=== PATIENT | male | born 1935 | race Caucasian/White ===

== ENCOUNTER 2020-11-11 19:59 | Inpatient (IN) | payer OTHER ==
[~2020-11-11] VITALS: Ht 165.1 cm; Wt 63.1 kg
[2020-11-11] MEDS ORDERED: SODIUM CHLORIDE 0.9% 500 ML IV ONE (20:45)
[2020-11-11] MEDS ORDERED: ONDANSETRON HCL 4 MG/2 ML VIAL IV ONE (20:45)
[2020-11-11] MEDS ORDERED: MORPHINE SULFATE 4 MG/ML SYR/VIAL IV ONE (20:45)
[2020-11-11 22:08] LABS: Basophils # (auto) 0 10 ^3/uL (0-0.2); Basophils % (auto) 0.2 % (0.0-2.0); Eosinophils # (auto) 0.1 10 ^3/uL (0-0.8); Eosinophils % (auto) 1.1 % (0.0-7.0); Hematocrit 41.8 % (41.0-53.0); Hemoglobin 14.7 g/dL (13.5-17.5); Lymphocytes # (auto) 0.7 10 ^3/uL (0.4-5.4); Lymphocytes % (auto) 8.5 % (10.0-50.0); Mean Corpuscular Hemoglobin 32.4 pg (28.0-32.0); Mean Corpuscular Hgb Conc. 35.1 g/dL (32.0-36.0); Mean Corpuscular Volume 92.4 fL (80.0-100.0); Monocytes # (auto) 0.9 10 ^3/uL (0-1.3); Monocytes % (auto) 10.9 % (0.0-12.0); Neutrophils # (auto) 6.9 10 ^3/uL (1.6-8.6); Neutrophils % (auto) 79.3 % (37.0-80.0); Red Blood Cells 4.53 10^6/uL (4.5-5.90); White Blood Cell 8.7 10^3/uL (4.4-10.8)
[2020-11-11 22:30] LABS: BUN/Creatinine Ratio 24.4; Calcium 8.7 mg/dL (8.5-10.1); Potassium 3.9 mmol/L (3.5-5.1)
[2020-11-11 22:45] LABS: Partial Thromboplastin Time 44.4 sec (23.0-31.2)
[2020-11-11 22:49] LABS: INR 4.7 (0.9-1.15)
[2020-11-12] MEDS ORDERED: MORPHINE SULF INJ 2 MG/ML SYRINGE 1ML IV PRN (01:30)
[2020-11-12] MEDS ORDERED: DOCUSATE SOD 100 MG CAP PO PRN (01:30)
[2020-11-12] MEDS ORDERED: ONDANSETRON HCL 4 MG/2 ML VIAL IV PRN (01:30)
[2020-11-12] MEDS ORDERED: NITROGLYCERIN 0.4 MG SL TAB SL PRN (01:30)
[2020-11-12] MEDS ORDERED: ACETAMINOPHEN 325 MG TAB PO PRN (01:30)
[2020-11-12] MEDS ORDERED: HYDROcodone-ACET 5/325MG TAB PO PRN (01:30)
[2020-11-12] MEDS: SODIUM CHLORIDE 0.9% 1,000 ML IV SCH ×2 (03:08→18:10)
[2020-11-12 06:45] VITALS: BP 124/68
[2020-11-12 08:59] LABS: Basophils # (auto) 0 10 ^3/uL (0-0.2); Basophils % (auto) 0.7 % (0.0-2.0); Eosinophils # (auto) 0.2 10 ^3/uL (0-0.8); Eosinophils % (auto) 2.9 % (0.0-7.0); Hematocrit 40.4 % (41.0-53.0); Lymphocytes # (auto) 0.7 10 ^3/uL (0.4-5.4); Lymphocytes % (auto) 9.3 % (10.0-50.0); Mean Corpuscular Hemoglobin 32.1 pg (28.0-32.0); Mean Corpuscular Hgb Conc. 34.7 g/dL (32.0-36.0); Mean Corpuscular Volume 92.6 fL (80.0-100.0); Monocytes # (auto) 0.9 10 ^3/uL (0-1.3); Monocytes % (auto) 12.1 % (0.0-12.0); Neutrophils # (auto) 5.4 10 ^3/uL (1.6-8.6); Nucleated Red Blood Cells % 0.1 %; Red Blood Cells 4.36 10^6/uL (4.5-5.90); Red Cell Distribution Width 15.2 % (11.8-14.3); White Blood Cell 7.2 10^3/uL (4.4-10.8)
[2020-11-12 09:00] VITALS: BP 124/68
[2020-11-12] MEDS ORDERED: IRBE150T49 PO (09:14)
[2020-11-12] MEDS ORDERED: FURO40TA4 PO (09:14)
[2020-11-12] MEDS ORDERED: PROP10TA57 PO (09:14)
[2020-11-12] MEDS ORDERED: DILT90CA PO (09:14)
[2020-11-12] MEDS ORDERED: WARF2TAB49 PO (09:14)
[2020-11-12] MEDS ORDERED: POTA10TA32 PO (09:14)
[2020-11-12] MEDS ORDERED: ATOR40TA52 PO (09:14)
[2020-11-12 09:19] LABS: Albumin 2.8 g/dL (3.4-5.0); BUN/Creatinine Ratio 25.4; Calcium 7.9 mg/dL (8.5-10.1); Partial Thromboplastin Time 48.7 sec (23.0-31.2); Potassium 3.8 mmol/L (3.5-5.1)
[2020-11-12 09:22] LABS: Bilirubin, Total 1.5 mg/dL (0.2-1.0); INR 5.82 (0.9-1.15); Total Protein 5.9 g/dL (6.4-8.2)
[2020-11-12] MEDS ORDERED: ZINC SULFATE 220mg CAP or TAB PO SCH (10:00)
[2020-11-12] MEDS ORDERED: ENOXAPARIN SOD 40 MG/0.4 ML SYRINGE SC SCH (10:00)
[2020-11-12] MEDS: ASCORBIC ACID 500 MG TAB PO SCH ×2 (10:56→22:00)
[2020-11-12] MEDS: MULTIPLE VITAMIN TAB PO SCH (10:56)
[2020-11-12] MEDS: FAMOTIDINE (10MG/ML) 2ML VL IV SCH ×2 (10:56→22:00)
[2020-11-12 13:00] VITALS: BP 122/70
[2020-11-12 17:00] VITALS: BP 132/68
[2020-11-12 22:00] VITALS: BP 118/70
[2020-11-12] MEDS ORDERED: PHYTONADIONE(VitK) ORAL Susp 10mg/10ml(1mg/ml) PO ONE (23:45)
[2020-11-13 05:01] VITALS: BP 151/72
[2020-11-13 05:40] LABS: Basophils # (auto) 0 10 ^3/uL (0-0.2); Basophils % (auto) 0.5 % (0.0-2.0); Eosinophils # (auto) 0.1 10 ^3/uL (0-0.8); Hematocrit 42.2 % (41.0-53.0); Hemoglobin 14.5 g/dL (13.5-17.5); Lymphocytes # (auto) 0.6 10 ^3/uL (0.4-5.4); Lymphocytes % (auto) 7.1 % (10.0-50.0); Mean Corpuscular Hemoglobin 31.8 pg (28.0-32.0); Mean Corpuscular Hgb Conc. 34.3 g/dL (32.0-36.0); Mean Corpuscular Volume 92.7 fL (80.0-100.0); Monocytes # (auto) 0.9 10 ^3/uL (0-1.3); Monocytes % (auto) 11.2 % (0.0-12.0); Neutrophils # (auto) 6.6 10 ^3/uL (1.6-8.6); Neutrophils % (auto) 80.2 % (37.0-80.0); Red Blood Cells 4.56 10^6/uL (4.5-5.90); Red Cell Distribution Width 14.7 % (11.8-14.3); White Blood Cell 8.2 10^3/uL (4.4-10.8)
[2020-11-13 06:04] LABS: INR 5.56 (0.9-1.15)
[2020-11-13 06:08] LABS: Calcium 7.9 mg/dL (8.5-10.1); Potassium 3.9 mmol/L (3.5-5.1)
[2020-11-13 06:14] LABS: Albumin 2.6 g/dL (3.4-5.0); BUN/Creatinine Ratio 26.6; Bilirubin, Total 1.9 mg/dL (0.2-1.0); Total Protein 6.1 g/dL (6.4-8.2)
[2020-11-13 09:00] VITALS: BP 137/66
[2020-11-13] MEDS ORDERED: MORPHINE SULF INJ 2 MG/ML SYRINGE 1ML IV PRN (10:00)
[2020-11-13] MEDS ORDERED: PHYTONADIONE(VitK) ORAL Susp 10mg/10ml(1mg/ml) PO ONE (10:00)
[2020-11-13] MEDS: MULTIPLE VITAMIN TAB PO SCH (11:56)
[2020-11-13] MEDS: FAMOTIDINE (10MG/ML) 2ML VL IV SCH ×2 (11:56→22:46)
[2020-11-13 13:00] VITALS: BP 135/74
[2020-11-13 17:00] VITALS: BP 136/88
[2020-11-13 22:00] VITALS: BP 121/71
[2020-11-14 04:00] VITALS: BP 127/85
[2020-11-14 05:14] LABS: Basophils # (auto) 0 10 ^3/uL (0-0.2); Basophils % (auto) 0.7 % (0.0-2.0); Eosinophils # (auto) 0.2 10 ^3/uL (0-0.8); Eosinophils % (auto) 2.5 % (0.0-7.0); Hemoglobin 14.9 g/dL (13.5-17.5); Lymphocytes # (auto) 0.6 10 ^3/uL (0.4-5.4); Lymphocytes % (auto) 8.7 % (10.0-50.0); Mean Corpuscular Hemoglobin 32.2 pg (28.0-32.0); Mean Corpuscular Hgb Conc. 34.7 g/dL (32.0-36.0); Mean Corpuscular Volume 92.7 fL (80.0-100.0); Monocytes # (auto) 0.8 10 ^3/uL (0-1.3); Monocytes % (auto) 11.4 % (0.0-12.0); Neutrophils # (auto) 5.3 10 ^3/uL (1.6-8.6); Neutrophils % (auto) 76.7 % (37.0-80.0); Nucleated Red Blood Cells % 0.1 %; Red Blood Cells 4.64 10^6/uL (4.5-5.90); Red Cell Distribution Width 14.7 % (11.8-14.3); White Blood Cell 6.9 10^3/uL (4.4-10.8)
[2020-11-14 05:32] LABS: INR 1.5 (0.9-1.15); Partial Thromboplastin Time 34.1 sec (23.0-31.2)
[2020-11-14 06:00] LABS: Calcium 8.1 mg/dL (8.5-10.1); Potassium 3.8 mmol/L (3.5-5.1)
[2020-11-14 06:02] LABS: BUN/Creatinine Ratio 22.2
[2020-11-14 08:00] VITALS: BP 143/78
[2020-11-14] MEDS: MULTIPLE VITAMIN TAB PO SCH (10:32)
[2020-11-14] MEDS: FAMOTIDINE (10MG/ML) 2ML VL IV SCH ×2 (10:32→21:33)
[2020-11-14 12:00] VITALS: BP 126/73
[2020-11-14 17:59] VITALS: BP 134/90
[2020-11-14 22:00] VITALS: BP 131/60
[2020-11-15 05:04] VITALS: BP 134/77
[2020-11-15] MEDS: FAMOTIDINE (10MG/ML) 2ML VL IV SCH ×2 (10:32→21:02)
[2020-11-15] MEDS: MULTIPLE VITAMIN TAB PO SCH (10:32)
[2020-11-15 13:56] VITALS: BP 117/72
[2020-11-15] MEDS: ENOXAPARIN SOD 60 MG/0.6 ML SYRINGE SC SCH ×2 (13:56→21:02)
[2020-11-15 17:00] VITALS: BP 135/76
[2020-11-15] MEDS ORDERED: WARFARIN SODIUM 1 MG TAB PO SCH (17:00)
[2020-11-15 21:13] VITALS: BP 136/98
[2020-11-16 03:10] VITALS: BP 148/75
[2020-11-16 06:03] LABS: Basophils # (auto) 0.1 10 ^3/uL (0-0.2); Basophils % (auto) 0.9 % (0.0-2.0); Eosinophils # (auto) 0.2 10 ^3/uL (0-0.8); Eosinophils % (auto) 2.6 % (0.0-7.0); Hematocrit 44.4 % (41.0-53.0); Hemoglobin 15.3 g/dL (13.5-17.5); Lymphocytes # (auto) 0.9 10 ^3/uL (0.4-5.4); Lymphocytes % (auto) 12.6 % (10.0-50.0); Mean Corpuscular Hemoglobin 31.8 pg (28.0-32.0); Mean Corpuscular Hgb Conc. 34.4 g/dL (32.0-36.0); Mean Corpuscular Volume 92.4 fL (80.0-100.0); Monocytes # (auto) 0.9 10 ^3/uL (0-1.3); Monocytes % (auto) 12.3 % (0.0-12.0); Neutrophils # (auto) 5.3 10 ^3/uL (1.6-8.6); Neutrophils % (auto) 71.6 % (37.0-80.0); Nucleated Red Blood Cells % 0.1 %; Red Blood Cells 4.81 10^6/uL (4.5-5.90); Red Cell Distribution Width 14.6 % (11.8-14.3); White Blood Cell 7.4 10^3/uL (4.4-10.8)
[2020-11-16 06:26] LABS: INR 1.24 (0.9-1.15)
[2020-11-16 09:00] VITALS: BP 132/76
[2020-11-16] MEDS: MULTIPLE VITAMIN TAB PO SCH (11:31)
[2020-11-16] MEDS: FAMOTIDINE (10MG/ML) 2ML VL IV SCH (11:31)
[2020-11-16] MEDS: ENOXAPARIN SOD 60 MG/0.6 ML SYRINGE SC SCH (11:31)
== END 2020-11-16 14:06 | DRG 552 ==
LOC: ER 19:59 → EDBD 19:59 → TELE-WESTW 11-12 01:26
PROVIDERS: ADMIT Nurse Practitioner Family; ATTEND Internal Medicine
DX: S32.030A Wedge compression fracture of third lumbar vertebra, initial encounter for closed fracture (principal); F05 Delirium due to known physiological condition; W06.XXXA Fall from bed, initial encounter; I48.0 Paroxysmal atrial fibrillation; E78.5 Hyperlipidemia, unspecified; Z20.822 Contact with and (suspected) exposure to COVID-19; G89.29 Other chronic pain; I10 Essential (primary) hypertension; I25.10 Atherosclerotic heart disease of native coronary artery without angina pectoris; R79.1 Abnormal coagulation profile; Z79.01 Long term (current) use of anticoagulants; Z95.2 Presence of prosthetic heart valve; Y93.89 Activity, other specified; Y92.89 Other specified places as the place of occurrence of the external cause; Y99.8 Other external cause status
CPT/HCPCS: 36415; 70450; 71045; 72131; 72192; 80048; 80053; 85025; 85610; 85730; 87426; 93005; 93306; 96361; 96374; 96375; 97116; 97163; 97530; G0378; J2405; J3490

== ENCOUNTER 2021-01-18 18:41 | Inpatient (IN) | payer MEDICARE, OTHER ==
[~2021-01-18] VITALS: Ht 175.3 cm; Wt 65.5 kg
[~2021-01-18 18:41] MED LIST: ATOR40TA52 PO; DILT90CA PO; FURO40TA4 PO; IRBE150T49 PO; POTA10TA32 PO; PROP10TA57 PO; WARF2TAB49 PO
[2021-01-18 19:32] LABS: Basophils # (auto) 0 10 ^3/uL (0-0.2); Basophils % (auto) 0.4 % (0.0-2.0); Eosinophils # (auto) 0 10 ^3/uL (0-0.8); Eosinophils % (auto) 0.5 % (0.0-7.0); Hemoglobin 14.7 g/dL (13.5-17.5); Lymphocytes # (auto) 0.4 10 ^3/uL (0.4-5.4); Lymphocytes % (auto) 4.3 % (10.0-50.0); Mean Corpuscular Hemoglobin 32.2 pg (28.0-32.0); Mean Corpuscular Hgb Conc. 33.5 g/dL (32.0-36.0); Mean Corpuscular Volume 96.1 fL (80.0-100.0); Monocytes # (auto) 0.8 10 ^3/uL (0-1.3); Monocytes % (auto) 8.4 % (0.0-12.0); Neutrophils # (auto) 8.2 10 ^3/uL (1.6-8.6); Neutrophils % (auto) 86.4 % (37.0-80.0); Red Blood Cells 4.58 10^6/uL (4.5-5.90); Red Cell Distribution Width 15.6 % (11.8-14.3); White Blood Cell 9.5 10^3/uL (4.4-10.8)
[2021-01-18 19:53] LABS: Albumin 3.1 g/dL (3.4-5.0); Calcium 8.9 mg/dL (8.5-10.1); Magnesium 2.3 mg/dL (1.6-2.6); Potassium 5.1 mmol/L (3.5-5.1)
[2021-01-18 20:00] LABS: BUN/Creatinine Ratio 16.3; Total Protein 6.4 g/dL (6.4-8.2)
[2021-01-18] MEDS ORDERED: HALOPERIDOL LACTATE 5 MG/ML INJ VIAL IM ONE (22:00)
[2021-01-18] MEDS ORDERED: MORPHINE SULFATE 4 MG/ML SYR/VIAL IV STA (23:45)
[2021-01-18] MEDS ORDERED: MORPHINE SULFATE 4 MG/ML SYR/VIAL ONE (23:46)
[2021-01-19] MEDS ORDERED: ACETAMINOPHEN 325 MG TAB PO PRN (02:30)
[2021-01-19] MEDS ORDERED: ONDANSETRON HCL 4 MG/2 ML VIAL IV PRN (02:30)
[2021-01-19] MEDS ORDERED: SODIUM CHLORIDE 0.9% 1,000 ML IV SCH (02:30)
[2021-01-19] MEDS ORDERED: NITROGLYCERIN 0.4 MG SL TAB SL PRN (02:30)
[2021-01-19] MEDS ORDERED: MORPHINE SULFATE INJECTION 2 MG/ML SYRG IV PRN (02:30)
[2021-01-19 03:55] LABS: INR 2.39 (0.9-1.15); Partial Thromboplastin Time 35.9 sec (23.6-33.0)
[2021-01-19] MEDS: MORPHINE SULFATE 4 MG/ML SYR/VIAL IV PRN (11:24)
[2021-01-19 13:00] VITALS: BP 138/76
[2021-01-19] MEDS ORDERED: FUROSEMIDE 40 MG/4 ML VIAL IV ONE (13:45)
[2021-01-19 15:34] VITALS: BP 136/90
[2021-01-19 15:50] VITALS: BP 120/77
[2021-01-19 16:23] VITALS: BP 136/90
[2021-01-19 19:18] VITALS: BP 134/68
[2021-01-19 20:00] VITALS: BP 120/89
[2021-01-19 20:08] LABS: INR 2.22 (0.9-1.15); Partial Thromboplastin Time 33.6 sec (23.6-33.0)
[2021-01-19] MEDS: CARVEDILOL 3.125 MG TAB PO SCH (22:48)
[2021-01-20] VITALS (8 sets, daily range): BP systolic 99–137; BP diastolic 56–74
[2021-01-20] MEDS: HYDROcodone-ACET 5/325MG TAB PO PRN (01:12)
[2021-01-20 05:46] LABS: Basophils # (auto) 0 10 ^3/uL (0-0.2); Basophils % (auto) 0.6 % (0.0-2.0); Eosinophils # (auto) 0.2 10 ^3/uL (0-0.8); Eosinophils % (auto) 3.3 % (0.0-7.0); Hematocrit 40.1 % (41.0-53.0); Hemoglobin 13.5 g/dL (13.5-17.5); Lymphocytes # (auto) 0.6 10 ^3/uL (0.4-5.4); Lymphocytes % (auto) 9.6 % (10.0-50.0); Mean Corpuscular Hemoglobin 32.2 pg (28.0-32.0); Mean Corpuscular Hgb Conc. 33.6 g/dL (32.0-36.0); Mean Corpuscular Volume 95.8 fL (80.0-100.0); Monocytes # (auto) 0.8 10 ^3/uL (0-1.3); Monocytes % (auto) 11.3 % (0.0-12.0); Neutrophils # (auto) 5.1 10 ^3/uL (1.6-8.6); Neutrophils % (auto) 75.2 % (37.0-80.0); Red Blood Cells 4.19 10^6/uL (4.5-5.90); Red Cell Distribution Width 15.8 % (11.8-14.3); White Blood Cell 6.7 10^3/uL (4.4-10.8)
[2021-01-20 05:54] LABS: INR 1.98 (0.9-1.15)
[2021-01-20 06:18] LABS: Calcium 8.6 mg/dL (8.5-10.1)
[2021-01-20] MEDS: CARVEDILOL 3.125 MG TAB PO SCH ×2 (09:53→23:00)
[2021-01-20 12:27] LABS: INR 1.78 (0.9-1.15); Partial Thromboplastin Time 34.2 sec (23.6-33.0)
[2021-01-20] MEDS ORDERED: PHYTONADIONE (VIT K)10 MG/ML 1ML VIAL SUBCUT ONE (13:30)
[2021-01-20] MEDS ORDERED: FUROSEMIDE 40 MG/4 ML VIAL IV ONE (15:45)
[2021-01-20] MEDS: LOSARTAN POTASSIUM 25 MG TAB PO SCH (16:29)
[2021-01-20 20:27] LABS: INR 1.78 (0.9-1.15)
[2021-01-20] MEDS ORDERED: INFLUENZA QUAD 2020-2021 0.5 ML SYRG IM ONE (22:00)
[2021-01-21] VITALS (20 sets, daily range): BP systolic 104–153; BP diastolic 59–95
[2021-01-21 06:12] LABS: INR 1.54 (0.9-1.15)
[2021-01-21] MEDS ORDERED: ceFAZolin 1GM/50ML 100 ML IV ONE (09:05)
[2021-01-21] MEDS ORDERED: TRANEXAMIC ACID 20 ML ONE (09:39)
[2021-01-21] MEDS ORDERED: TETRACAINE 1% INJ 2 ML VIAL IJ ONE (09:39)
[2021-01-21] MEDS ORDERED: EPINEPHrine HCL 1 MG/1 ML AMP ONE (09:40)
[2021-01-21] MEDS ORDERED: VANCOMYCIN HCL 1000 MG VL ONE (09:42)
[2021-01-21] MEDS ORDERED: BUPIVACAINE 0.5% P/F INJ 10 ML VIAL ONE (09:48)
[2021-01-21] MEDS ORDERED: fentaNYL CITRATE 100 MCG/2 ML VL ONE (09:49)
[2021-01-21] MEDS ORDERED: MIDAZOLAM HCL 2MG/2ML 2ml VIAL (1mg/ml) ONE (09:50)
[2021-01-21] MEDS ORDERED: KETAMINE HCL 10 ML ONE (09:50)
[2021-01-21] MEDS ORDERED: PROPOFOL 10 MG/ML 20 ML IV ONE (10:50)
[2021-01-21] MEDS ORDERED: BACITRACIN TOP OINT 1 UD PKG TOP ONE (12:32)
[2021-01-21] MEDS ORDERED: ONDANSETRON HCL 4 MG/2 ML VIAL IV PRN (12:45)
[2021-01-21] MEDS: LOSARTAN POTASSIUM 25 MG TAB PO SCH (14:00)
[2021-01-21] MEDS: CARVEDILOL 3.125 MG TAB PO SCH ×2 (14:00→21:23)
[2021-01-21] MEDS: LACTATED RINGER'S 1,000 ML IV SCH ×2 (14:08→22:33)
[2021-01-21] MEDS: ceFAZolin 1GM/50ML 50 ML IV SCH ×2 (14:12→21:23)
[2021-01-21] MEDS: MORPHINE SULFATE 4 MG/ML SYR/VIAL IV PRN ×2 (16:22→21:25)
[2021-01-21] MEDS ORDERED: WARFARIN SODIUM 2 MG TAB PO ONE (17:00)
[2021-01-22] VITALS (21 sets, daily range): BP systolic 91–133; BP diastolic 51–83
[2021-01-22 04:58] LABS: Basophils # (auto) 0.1 10 ^3/uL (0-0.2); Basophils % (auto) 0.9 % (0.0-2.0); Eosinophils # (auto) 0.1 10 ^3/uL (0-0.8); Hemoglobin 13.7 g/dL (13.5-17.5); Lymphocytes # (auto) 0.4 10 ^3/uL (0.4-5.4); Lymphocytes % (auto) 5.8 % (10.0-50.0); Mean Corpuscular Hemoglobin 31.5 pg (28.0-32.0); Mean Corpuscular Hgb Conc. 32.6 g/dL (32.0-36.0); Mean Corpuscular Volume 96.3 fL (80.0-100.0); Monocytes # (auto) 0.9 10 ^3/uL (0-1.3); Monocytes % (auto) 13.5 % (0.0-12.0); Neutrophils # (auto) 5.1 10 ^3/uL (1.6-8.6); Neutrophils % (auto) 78.8 % (37.0-80.0); Red Blood Cells 4.36 10^6/uL (4.5-5.90); Red Cell Distribution Width 15.4 % (11.8-14.3); White Blood Cell 6.5 10^3/uL (4.4-10.8)
[2021-01-22 05:13] LABS: BUN/Creatinine Ratio 34.4; INR 2.05 (0.9-1.15); Partial Thromboplastin Time 32.7 sec (23.6-33.0)
[2021-01-22 05:14] LABS: Calcium 8.9 mg/dL (8.5-10.1)
[2021-01-22] MEDS: MORPHINE SULFATE 4 MG/ML SYR/VIAL IV PRN (05:39)
[2021-01-22] MEDS: ceFAZolin 1GM/50ML 50 ML IV SCH ×3 (05:49→21:52)
[2021-01-22] MEDS: LACTATED RINGER'S 1,000 ML IV SCH ×2 (08:45→18:45)
[2021-01-22] MEDS ORDERED: ENOXAPARIN SOD 30 MG/0.3 ML SYRINGE SC SCH (10:00)
[2021-01-22] MEDS: CARVEDILOL 3.125 MG TAB PO SCH ×2 (10:28→21:51)
[2021-01-22] MEDS: LOSARTAN POTASSIUM 25 MG TAB PO SCH (10:29)
[2021-01-22] MEDS ORDERED: WARFARIN SODIUM 2 MG TAB PO ONE (17:00)
[2021-01-23 05:00] VITALS: BP 123/81
[2021-01-23] MEDS: ceFAZolin 1GM/50ML 50 ML IV SCH ×3 (05:48→22:48)
[2021-01-23] MEDS: LACTATED RINGER'S 1,000 ML IV SCH (05:48)
[2021-01-23 06:51] LABS: Basophils # (auto) 0 10 ^3/uL (0-0.2); Basophils % (auto) 0.4 % (0.0-2.0); Eosinophils # (auto) 0.1 10 ^3/uL (0-0.8); Eosinophils % (auto) 0.8 % (0.0-7.0); Hematocrit 42.1 % (41.0-53.0); Hemoglobin 14.1 g/dL (13.5-17.5); Lymphocytes # (auto) 0.5 10 ^3/uL (0.4-5.4); Lymphocytes % (auto) 6.4 % (10.0-50.0); Mean Corpuscular Hemoglobin 32.5 pg (28.0-32.0); Mean Corpuscular Hgb Conc. 33.5 g/dL (32.0-36.0); Mean Corpuscular Volume 96.9 fL (80.0-100.0); Monocytes % (auto) 12.9 % (0.0-12.0); Neutrophils # (auto) 6.3 10 ^3/uL (1.6-8.6); Neutrophils % (auto) 79.5 % (37.0-80.0); Nucleated Red Blood Cells % 0.1 %; Red Blood Cells 4.34 10^6/uL (4.5-5.90); Red Cell Distribution Width 15.4 % (11.8-14.3); White Blood Cell 7.9 10^3/uL (4.4-10.8)
[2021-01-23 07:07] LABS: INR 2.13 (0.9-1.15)
[2021-01-23 07:23] LABS: Albumin 2.5 g/dL (3.4-5.0)
[2021-01-23 08:48] VITALS: BP 140/82
[2021-01-23] MEDS: CARVEDILOL 3.125 MG TAB PO SCH ×2 (09:19→22:49)
[2021-01-23] MEDS: LOSARTAN POTASSIUM 25 MG TAB PO SCH (09:21)
[2021-01-23 13:00] VITALS: BP 90/60
[2021-01-23 17:00] VITALS: BP 106/64
[2021-01-23] MEDS ORDERED: WARFARIN SODIUM 2 MG TAB PO ONE (17:00)
[2021-01-23 22:00] VITALS: BP 137/81
[2021-01-24 05:00] VITALS: BP 104/65
[2021-01-24] MEDS: ceFAZolin 1GM/50ML 50 ML IV SCH ×2 (05:12→13:42)
[2021-01-24 05:51] LABS: Basophils # (auto) 0 10 ^3/uL (0-0.2); Basophils % (auto) 0.4 % (0.0-2.0); Eosinophils # (auto) 0.1 10 ^3/uL (0-0.8); Eosinophils % (auto) 1.5 % (0.0-7.0); Hematocrit 39.9 % (41.0-53.0); Hemoglobin 13.5 g/dL (13.5-17.5); Lymphocytes # (auto) 0.6 10 ^3/uL (0.4-5.4); Lymphocytes % (auto) 6.8 % (10.0-50.0); Mean Corpuscular Hemoglobin 32.6 pg (28.0-32.0); Mean Corpuscular Hgb Conc. 33.9 g/dL (32.0-36.0); Monocytes # (auto) 0.9 10 ^3/uL (0-1.3); Monocytes % (auto) 10.9 % (0.0-12.0); Neutrophils # (auto) 6.5 10 ^3/uL (1.6-8.6); Neutrophils % (auto) 80.4 % (37.0-80.0); Nucleated Red Blood Cells % 0.1 %; Red Blood Cells 4.15 10^6/uL (4.5-5.90); Red Cell Distribution Width 15.6 % (11.8-14.3); White Blood Cell 8.1 10^3/uL (4.4-10.8)
[2021-01-24 08:47] LABS: INR 1.72 (0.9-1.15)
[2021-01-24 09:00] VITALS: BP 121/61
[2021-01-24] MEDS: CARVEDILOL 3.125 MG TAB PO SCH (09:26)
[2021-01-24] MEDS: LOSARTAN POTASSIUM 25 MG TAB PO SCH (09:27)
[2021-01-24] MEDS: HYDROcodone-ACET 5/325MG TAB PO PRN (10:42)
[2021-01-24 10:48] VITALS: BP 121/61
[2021-01-24 13:00] VITALS: BP 81/50
[2021-01-24 13:54] VITALS: BP 115/80
[2021-01-24 17:00] VITALS: BP 98/53
[2021-01-24] MEDS ORDERED: WARFARIN SODIUM 1 MG TAB PO ONE (17:00)
== END 2021-01-24 18:00 | DRG 522 ==
LOC: EDBD 18:41 → ER 18:43 → TELE 01-19 03:08 → TELE-WESTW 01-19 09:29 → DOU IN ICU 01-21 12:10 → TELE-WESTW 01-22 22:36
PROVIDERS: ADMIT Nurse Practitioner; ATTEND Internal Medicine Pulmonary Disease
PROC: 30233K1 Transfusion of Nonautologous Frozen Plasma into Peripheral Vein, Percutaneous Approach (ICD-10-PCS; 2021-01-19)
PROC: 0SRS0J9 Replacement of Left Hip Joint, Femoral Surface with Synthetic Substitute, Cemented, Open Approach (ICD-10-PCS; principal; 2021-01-21 10:11)
DX: M80.052A Age-related osteoporosis with current pathological fracture, left femur, initial encounter for fracture (principal); D68.69 Other thrombophilia; I50.22 Chronic systolic (congestive) heart failure; I48.20 Chronic atrial fibrillation, unspecified; I42.9 Cardiomyopathy, unspecified; D68.9 Coagulation defect, unspecified; M25.00 Hemarthrosis, unspecified joint; Z20.822 Contact with and (suspected) exposure to COVID-19; I11.0 Hypertensive heart disease with heart failure; E78.5 Hyperlipidemia, unspecified; I27.20 Pulmonary hypertension, unspecified; F03.90 Unspecified dementia, unspecified severity, without behavioral disturbance, psychotic disturbance, mood disturbance, and anxiety; T45.515A Adverse effect of anticoagulants, initial encounter; M80.08XA Age-related osteoporosis with current pathological fracture, vertebra(e), initial encounter for fracture; W01.0XXA Fall on same level from slipping, tripping and stumbling without subsequent striking against object, initial encounter; Y93.89 Activity, other specified; Z79.01 Long term (current) use of anticoagulants; Y92.89 Other specified places as the place of occurrence of the external cause; Y99.8 Other external cause status; Z95.2 Presence of prosthetic heart valve
CPT/HCPCS: 36415; 36430; 70450; 71045; 72170; 73502; 80048; 80053; 82040; 82565; 83735; 83880; 84443; 84484; 85025; 85610; 85730; 86850; 86900; 86901; 87081; 87426; 93005; 96361; 96372; 96374; 97110; 97116; 97163; 97530; A4565; G0378; J0171; J0690; J2250; J2704; J3490

== ENCOUNTER 2021-02-13 00:14 | Emergency (ER) | payer MEDICARE ==
[~2021-02-13] VITALS: Ht 172.7 cm; Wt 63.5 kg
[~2021-02-13 00:14] MED LIST changes: -DILT90CA PO; -PROP10TA57 PO
[2021-02-13] MEDS ORDERED: phytonadione 10 MG in SODIUM CHL 0.9% 50 ML IV ONE (02:45)
[2021-02-13] MEDS ORDERED: LIDOCAINE W/ EPINEPHRINE 1% 20ML VIAL ID ONE (02:45)
[2021-02-13 03:25] LABS: Basophils # (auto) 0 10 ^3/uL (0-0.2); Basophils % (auto) 0.4 % (0.0-2.0); Eosinophils # (auto) 0.1 10 ^3/uL (0-0.8); Eosinophils % (auto) 0.9 % (0.0-7.0); Hematocrit 44.6 % (41.0-53.0); Hemoglobin 14.7 g/dL (13.5-17.5); Lymphocytes # (auto) 0.5 10 ^3/uL (0.4-5.4); Lymphocytes % (auto) 6.6 % (10.0-50.0); Mean Corpuscular Hemoglobin 31.3 pg (28.0-32.0); Mean Corpuscular Volume 94.9 fL (80.0-100.0); Monocytes # (auto) 0.6 10 ^3/uL (0-1.3); Monocytes % (auto) 7.6 % (0.0-12.0); Neutrophils # (auto) 6.8 10 ^3/uL (1.6-8.6); Neutrophils % (auto) 84.5 % (37.0-80.0); Nucleated Red Blood Cells % 0.1 %; Red Cell Distribution Width 15.5 % (11.8-14.3); White Blood Cell 8.1 10^3/uL (4.4-10.8)
[2021-02-13] MEDS ORDERED: phytonadione 1 ML ONE (03:35)
[2021-02-13 03:40] LABS: Albumin 2.7 g/dL (3.4-5.0); BUN/Creatinine Ratio 27.1; Calcium 8.6 mg/dL (8.5-10.1); Potassium 4.4 mmol/L (3.5-5.1)
[2021-02-13 03:45] LABS: Bilirubin, Total 1.2 mg/dL (0.2-1.0); Total Protein 6.3 g/dL (6.4-8.2)
[2021-02-13 03:47] LABS: INR 1.32 (0.9-1.15); Partial Thromboplastin Time 26.6 sec (23.6-33.0)
[2021-02-13 04:08] VITALS: BP 112/79
== END 2021-02-13 04:21 | disposition short-term general hospital (02) ==
LOC: EDBD 00:14 → ER 00:14
DX: S01.81XA Laceration without foreign body of other part of head, initial encounter (principal); U07.1 COVID-19; I60.8 Other nontraumatic subarachnoid hemorrhage; R77.8 Other specified abnormalities of plasma proteins; R51.9 Headache, unspecified; I48.91 Unspecified atrial fibrillation; E78.5 Hyperlipidemia, unspecified; I10 Essential (primary) hypertension; Z79.899 Other long term (current) drug therapy; Z79.84 Long term (current) use of oral hypoglycemic drugs; W01.0XXA Fall on same level from slipping, tripping and stumbling without subsequent striking against object, initial encounter; Y93.89 Activity, other specified; Y92.89 Other specified places as the place of occurrence of the external cause; Y99.8 Other external cause status
CPT/HCPCS: 12013; 36415; 70450; 71045; 72125; 72170; 80053; 83880; 84484; 85025; 85379; 85610; 85730; 86850; 86900; 86901; 87426; 93005; 96365; 99285; J3430